=== PATIENT | female | born 1960 | race African-American/Black ===

== ENCOUNTER 2022-12-25 07:56 | Emergency (ER) | payer BC ==
[~2022-12-25] VITALS: Ht 162.6 cm; Wt 70.0 kg
[2022-12-25 08:06] VITALS: BP 0/0
== END 2022-12-25 08:18 ==
LOC: ER 07:56
DX: I46.9 Cardiac arrest, cause unspecified (principal); I10 Essential (primary) hypertension; Z86.59 Personal history of other mental and behavioral disorders
CPT/HCPCS: 31500; 82962; 92950; 99291